=== PATIENT | female | born 1990 | race Caucasian/White ===

== ENCOUNTER 2022-08-15 02:42 | Emergency (ER) | payer OTHER, SELFPAY ==
[2022-08-15 03:02] VITALS: BP 127/75; PULSE 71; RESP 18; TEMP 37.1; O2SAT 98
--- NOTE | 2022-08-15 04:25 | PC.NURSE ---
called for room x 2 attempts. LWBS-Triaged @ [id number]
== END 2022-08-15 04:25 | disposition left against medical advice (07) ==
PROVIDERS: PCP Emergency Medicine
DX: R05.9 Cough, unspecified (principal)
CPT/HCPCS: 99199

== ENCOUNTER 2023-02-05 18:55 | Emergency (ER) | payer OTHER, SELFPAY ==
--- NOTE | 2023-02-05 18:57 | ED.DENTAL ---
HPI - Dental/Oral General Chief complaint: Dental/Oral Stated complaint: tooth pain Time Seen by Provider: 02/05/23 18:58 Source: patient and RN notes reviewed History of Present Illness HPI Narrative: Patient is a 32-year-old female who presents to urgent care with complaints of right upper facial swelling and dental pain. Patient states it started 2 nights ago. Patient states the tooth has been broke off for some time and she has not followed up with a dentist. Denies any fever, nausea or vomiting. States that she started to have vaginal discharge over the last few days and then a partner told her he was positive for an STD but did not develops which 1. Patient is also requesting to be tested for STDs and treated. Patient denies any urinary symptoms or pain with urination. No other acute complaints. No acute distress noted. Patient aware of the plan of care. Some parts of this dictation were generated by voice recognition software and may contain typographical and/or grammatical inaccuracies. Related Data Home Medications Medication Instructions Recorded Confirmed olanzapine 20 mg tablet 20 mg PO DAILY 02/05/23 02/05/23 trazodone 100 mg tablet 100 mg PO DAILY 02/05/23 02/05/23 venlafaxine 75 mg capsule,extended 75 mg PO DAILY 02/05/23 02/05/23 release 24 hr Allergies Allergy/AdvReac Type Severity Reaction Status Date / Time No Known Allergies Allergy Verified 02/05/23 19:01 Review of Systems Review of Systems: CONSTITUTIONAL: Denies fever, chills, or sweats. EYES: Denies visual changes, redness, or discharge. ENT: Denies rhinorrhea, congestion, sore throat, or otalgia. Reports of right upper facial swelling and dental pain CARDIOVASCULAR: Denies chest pain, palpitations, or edema. RESPIRATORY: Denies cough or dyspnea. GASTROINTESTINAL: Denies abdominal pain, nausea, vomiting, or diarrhea. GENITOURINARY: Reports of thick white vaginal discharge SKIN: Denies rash or itching. MUSCULOSKELETAL: Denies back pain, joint pain, or myalgia. NEUROLOGIC: Denies headache, numbness, or weakness. All other systems reviewed are negative, except as documented in HPI. PMFSH Comments At the time of my signature, I reviewed and agree with the nursing past medical, surgical, social, and family history. There is no relevant family history pertinent to the patient complaint. Exam Narrative: GENERAL: This is a well-nourished, well-developed patient, in no apparent distress. HEAD: normocephalic, atraumatic. EYES: PERRL. Sclera clear/white. Vision is grossly intact. EARS: External ears normal NOSE: External nose normal with no obvious nasal discharge, nares without redness, no rhinorrhea. THROAT: Mucous membranes moist, posterior pharynx clear. DENTAL: Avulsed right upper molar surrounding erythema and edema without drainage. Mild right upper facial swelling/tenderness NECK: Neck supple, non-tender without lymphadenopathy, masses or thyromegaly. SKIN: warm, intact with no suspicious lesions or rash, good texture and turgor. NEURO: awake, alert, and oriented to person, place and time. There were no obvious focal neurologic abnormalities. EXTREMITIES: No clubbing, cyanosis, or edema. Course Course Level of Care: Express Care Visit Vital Signs Vital signs: Vital Signs Temperature 97.8 F 02/05/23 19:00 Pulse Rate 95 02/05/23 19:00 Respiratory Rate 16 02/05/23 19:00 Blood Pressure 109/77 02/05/23 19:00 Pulse Oximetry 100 02/05/23 19:00 Oxygen Delivery Room Air 02/05/23 19:00 Temperature 97.8 F 02/05/23 19:00 Pulse Rate 95 02/05/23 19:00 Respiratory Rate 16 02/05/23 19:00 Blood Pressure 109/77 02/05/23 19:00 Pulse Oximetry 100 02/05/23 19:00 Oxygen Delivery Room Air 02/05/23 19:00 Reviewed MDM - Dental/Oral MDM Narrative Medical decision making narrative: Advised patient to complete the oral antibiotic regimen for dental infection as directed. You will be treated for gonorrhea
[2023-02-05 19:00] VITALS: BP 109/77; PULSE 95; RESP 16; TEMP 36.6; O2SAT 100
[2023-02-05] MEDS: cefTRIAXone 1 GM, LIDOCAINE HCL 1% LOCAL INJ 2.1 ML IM (19:10)
[2023-02-05 19:14] VITALS: BP 109/77; PULSE 95; RESP 16; TEMP 36.6; O2SAT 100
== END 2023-02-05 19:30 | disposition home or self-care (01) ==
PROVIDERS: Emergency Provider Nurse Practitioner Family
DX: K04.7 Periapical abscess without sinus (principal); Z11.3 Encounter for screening for infections with a predominantly sexual mode of transmission
CPT/HCPCS: 87491; 87591; 87661; 96372; 99214; G0463; J0696

== ENCOUNTER 2023-04-05 22:36 | Emergency (ER) | payer OTHER, SELFPAY ==
[2023-04-05 22:39] VITALS: BP 103/93; PULSE 76; RESP 18; TEMP 36.6; O2SAT 98
--- NOTE | 2023-04-05 23:15 | ED.FEMALEGU ---
HPI - Female Genitourinary General Chief complaint: Urogenital-Female Stated complaint: Urogenital Source: patient Mode of arrival: ambulatory Limitations: no limitations History of Present Illness HPI Narrative: this is a 32-year-old female with white vaginal discharge with some no flank pain abdominal pain and is worried about STD. Currently no fever chills no flank pain no shortness of breaths no chest pain. Related Data Home Medications Medication Instructions Recorded Confirmed trazodone 100 mg tablet 100 mg PO DAILY 02/05/23 04/05/23 venlafaxine 75 mg capsule,extended 75 mg PO DAILY 02/05/23 04/05/23 release 24 hr olanzapine 20 mg tablet 20 mg PO HS 04/05/23 04/05/23 Allergies Allergy/AdvReac Type Severity Reaction Status Date / Time No Known Allergies Allergy Verified 02/05/23 19:01 Review of Systems Review of Systems: All systems reviewed & are unremarkable except as noted in HPI and below PMFSH Past Medical History Medical History Patient denies medical problems Exam Const: General: healthy appearing Nutritional Appearance: well nourished Orientation/consciousness: patient oriented x3 Limitations: no limitations HENMT: Head: normal to inspection Eyes: Conjunctivae: conjunctivae normal Neck: Neck: normal visual inspection Chest: Chest palpation & inspection: normal inspection of the chest Resp: Effort & Inspection: normal respiratory effort Cardio: Rate: regular rate GI: GI Palp: Yes Soft to palpation Auscultation: normal bowel sounds : General: Yes bladder normal to palpation Other: speculum exam performed shows white vaginal discharge Urinary Catheter: Urinary Catheter: patent and draining Back/Spine/Pelvis: Back: no CVA tenderness Skin: General skin exam: normal color Rashes: no rashes Neuro: General: patient oriented x3 Extrem: General: normal to inspection Psych: Appearance: grossly normal Course Course Emergency Course: urine for [facility] collected, the patient concerned about STD and was given a dose of 1g ceftriaxone IM, 1g p.o. Zithromax and 150 of Diflucan p.o.. Urinalysis reviewed with patient. Vital Signs Vital signs: Vital Signs Temperature 36.6 C 04/05/23 22:39 Pulse Rate 76 04/05/23 22:39 Respiratory Rate 18 04/05/23 22:39 Blood Pressure 103/93 H 04/05/23 22:39 Pulse Oximetry 98 04/05/23 22:39 Oxygen Delivery Room Air 04/05/23 22:39 Temperature 36.6 C 04/05/23 22:39 Pulse Rate 76 04/05/23 22:39 Respiratory Rate 18 04/05/23 22:39 Blood Pressure 103/93 H 04/05/23 22:39 Pulse Oximetry 98 04/05/23 22:39 Oxygen Delivery Room Air 04/05/23 22:39 MDM - Female Genitourinary Lab Data Labs: Lab Results 04/05/23 Range/Units 22:45 Urine Color Pending Urine Appearance Pending Urine pH Pending Ur Specific [place] Pending Urine Protein Pending Urine Glucose (UA) Pending Urine Ketones Pending Ur Blood (Man) Pending Urine Nitrate Pending Urine Bilirubin Pending Urine Urobilinogen Pending Leukocyte Esterase Rfl Pending C.trachomatis RNA (TMA) Pending N.gonorrhoeae RNA (TMA) Pending Critical Care Time Critical Care Time Critical Care Time: No Discharge Plan Discharge Clinical Impression: Exposure to STD, Vaginal yeast infection Patient Disposition: Home, Self-Care Condition: Stable Instructions: Antibiotic Form, Sexually Transmitted Diseases (ED), Yeast Infection (ED) Additional Instructions: take medicine as prescribed and follow up with primary if symptoms persist or worsen. Prescriptions: New fluconazole [Diflucan] 150 mg tablet 150 mg PO ONCE Qty: 1 0RF Rx Instructions: as a single dose No Action olanzapine 20 mg tablet 20 mg PO HS venlafaxine 75 mg capsule,extended release 24hr 75 mg PO DAILY trazodone 100 mg tablet 100
[2023-04-05 23:28] LABS: Bilirubin Urine Negative (Negative); Blood Urine Negative (Negative); Color Urine Light Yellow (Yellow); Glucose Urine UA Negative (Negative); Ketones Urine Negative (Negative); Leukocyte Esterase Ur 1+ LEU/UL (Negative); Nitrate Urine Negative (Negative); Protein Urine Negative (Negative); Specific Grav Ur 1.015 (1.010-1.020); Urobilinogen Urine 0.2 mg/dL (0.2-1.0); pH Urine 7.5 (5.0-8.0)
[2023-04-05] MEDS: cefTRIAXone 1 GM, LIDOCAINE HCL 1% LOCAL INJ 2.1 ML IM (23:31)
[2023-04-05] MEDS: FLUCONAZOLE 150 MG TABLET PO (23:32)
[2023-04-05] MEDS: AZITHROMYCIN 250 MG TABLET 1000 MG PO (23:32)
[2023-04-05 23:35] LABS: Add Urine Microscopic? YES; Amorphous Sediment Urine Few; Appearance Urine Slightly Cloudy (Clear); Bacteria Urine 1+ /hpf; Squamous Epithelial Cell Urine Many /hpf (Few)
[2023-04-05 23:36] LABS: Mucus Urine Few /lpf
--- NOTE | 2023-04-05 23:46 | PC.NURSE ---
pt left AMA. pt signed AMA form. MD Duffy informed. Pt stated, I don't want to wait any more.
--- NOTE | 2023-04-05 23:53 | PC.NURSE ---
Md Duffy informed that pt left AMA prior to the final lab results. No new orders.
--- NOTE | 2023-04-08 14:46 | PC.NURSE ---
FINAL URINE CULTURE RESULTS: LESS THAN 10,000 CFU/ML OF SINGLE GRAM POSITIVE ORGANISM ISOLATED. NO FURTHER ACTION NEEDED PER DR LOCO.
--- NOTE | 2023-04-10 12:35 | PC.NURSE ---
Final Urine Test results: No C. Trachomatis, or N. Gonorrhoeae detected. no further treatment needed.
== END 2023-04-05 23:59 | disposition left against medical advice (07) ==
PROVIDERS: Emergency Provider Emergency Medicine
DX: N76.0 Acute vaginitis (principal); Z11.3 Encounter for screening for infections with a predominantly sexual mode of transmission
CPT/HCPCS: 81001; 87086; 87088; 87491; 87591; 96372; 99284; A9270; J0696

== ENCOUNTER 2023-10-17 08:06 | Outpatient (RCR) | payer OTHER, SELFPAY ==
[2023-10-17 09:06] LABS: Beta HCG Quantitative 14.72 mIU/ML
== END 2024-01-15 23:59 | disposition home or self-care (01) ==
LOC: ANHLAB 08:06
PROVIDERS: Visit Provider Obstetrics & Gynecology
DX: Z36.89 Encounter for other specified antenatal screening (principal); O36.0130 Maternal care for anti-D [Rh] antibodies, third trimester, not applicable or unspecified; Z3A.00 Weeks of gestation of pregnancy not specified
CPT/HCPCS: 36415; 84702; 85461; 86850; 86900; 86901

== ENCOUNTER 2023-12-20 11:56 | Emergency (ER) | payer OTHER, SELFPAY ==
[2023-12-20 12:14] VITALS: BP 117/74; PULSE 95; RESP 16; TEMP 36.8; O2SAT 99
--- NOTE | 2023-12-20 12:59 | ED.GENADULT ---
HPI - General Adult General Chief complaint: Upper Respiratory Infection Stated complaint: headache,bodyaches Time Seen by Provider: 12/20/23 12:59 Source: patient, RN notes reviewed and old records reviewed Mode of arrival: ambulatory Limitations: no limitations History of Present Illness HPI narrative: 33-year-old female presents to the [facility] with complaints headaches, body aches for 2 days. States that she has taken Sudafed. Denies fevers Treatments prior to arrival: other (Cold medication) Related Data Home Medications Medication Instructions Recorded Confirmed trazodone 100 mg tablet 100 mg PO DAILY 02/05/23 04/05/23 venlafaxine 75 mg capsule,extended 75 mg PO DAILY 02/05/23 04/05/23 release 24 hr olanzapine 20 mg tablet 20 mg PO HS 04/05/23 04/05/23 Allergies Allergy/AdvReac Type Severity Reaction Status Date / Time No Known Allergies Allergy Verified 02/05/23 19:01 Review of Systems Review of Systems: All systems reviewed & are unremarkable except as noted in HPI and below Constitutional: Constitutional: Reports as per HPI and Reports body ache(s) Eyes: Eyes: Reports no additional eye complaints ENT: Reports as per HPI, Reports nasal congestion and Denies sore throat Cardiovascular: Cardiovascular: Reports no additional cardiovascular complaints, Denies chest pain and Denies dyspnea Respiratory: Respiratory: Reports no additional respiratory complaints, Denies chest congestion, Denies cough and Denies dyspnea Gastrointestinal: Gastrointestinal: Reports no additional gastrointestinal complaints, Denies abdominal pain, Denies nausea and Denies vomiting Musculoskeletal: Musculoskeletal: Reports no additional musculoskeletal complaints Integumentary/Breasts: Skin/Breast: Reports system reviewed and no additional complaints, except as docu Neurologic: Reports system reviewed and no additional complaints, except as documented Psychiatric: Psychiatric: Reports no additional psychiatric complaints Allergic/Immunologic: Allergic/Immunologic: Reports no additional allergic/immunologic complaints PMFSH Past Medical History Medical History Patient denies medical problems Comments At the time of my signature, I reviewed and agree with the nursing past medical, surgical, social, and family history. There is no relevant family history pertinent to the patient complaint. Exam Const: General: cooperative, healthy appearing, comfortable, no acute distress, well developed, alert and well nourished Nutritional Appearance: well nourished Orientation/consciousness: patient oriented x3 Limitations: no limitations HENMT: Head: normal to inspection Ears: hearing grossly normal bilaterally, external ears normal, TM's normal bilaterally, EAC's normal, mastoids normal and no periauricular adenopathy Face/Nose/Sinus: Normal external nose present, Normal nares present, Normal nasal mucous membranes and turbinates present, No nasal discharge present, normal facial exam and face symmetric Face and sinus: normal facial exam and face symmetric Mouth: Yes Normal oral and palatal mucosa present, Yes lip normal, Yes tongue normal and Yes moist mucous membranes Throat: posterior oropharynx normal, tonsils normal and uvula midline Eyes: General: appearance normal, both eyes and all related structures Alignment and Position: alignment normal Periorbital: periorbital findings normal Pupils: Equal, round and reactive pupils present EOM: EOMs intact bilaterally Neck: Neck: normal visual inspection, full ROM, no lymphadenopathy and no meningeal signs Chest: Chest palpation & inspection: normal inspection of the chest Resp: Effort & Inspection: normal respiratory effort and able to speak in complete sentences Auscultation: clear to auscultation bilaterally, no crackles, no rales, no rhonchi and no wheezes Cardio: Rate: regular rate Rhythm: regular rhythm Back/Spine/P
== END 2023-12-20 13:10 | disposition home or self-care (01) ==
PROVIDERS: Emergency Provider Nurse Practitioner
DX: J06.9 Acute upper respiratory infection, unspecified (principal); Z20.822 Contact with and (suspected) exposure to COVID-19
CPT/HCPCS: 87426; 87804; 99213; G0463

== ENCOUNTER 2024-06-26 14:06 | Emergency (ER) | payer OTHER, SELFPAY ==
[2024-06-26 14:09] VITALS: BP 121/98; PULSE 104; RESP 18; TEMP 36.3; O2SAT 100
--- NOTE | 2024-06-26 15:20 | ED.GENADULT ---
HPI - General Adult General Chief complaint: Anxiety Stated complaint: anxiety Time Seen by Provider: 06/26/24 14:34 History of Present Illness HPI narrative: Fartun Martinez is a 33 y/o female who presents with reports having a hx of depression/anxiety and stopped using amphetamines about 6 days ago and she states she just has a really bad headache and feels dehydrated and feels a little nauseated. Denies fevers/chills/ vomiting Related Data Home Medications Medication Instructions Recorded Confirmed trazodone 100 mg tablet 100 mg PO DAILY 02/05/23 04/05/23 venlafaxine 75 mg capsule,extended 75 mg PO DAILY 02/05/23 04/05/23 release 24 hr olanzapine 20 mg tablet 20 mg PO HS 04/05/23 04/05/23 Allergies Allergy/AdvReac Type Severity Reaction Status Date / Time No Known Allergies Allergy Verified 02/05/23 19:01 Review of Systems Review of Systems: All systems reviewed & are unremarkable except as noted in HPI and below PMFSH Past Medical History Medical History Patient denies medical problems Social History Social History Substance use type: amphetamines Exam Narrative: GENERAL: Well-appearing, well-nourished, and in no acute distress. HEAD: Normocephalic, atraumatic. EYES: PERRLA and EOMI. ENT: Nares clear, no rhinorrhea or epistaxis. Mucous membranes moist. Oropharynx without tonsillar hypertrophy exudate or other lesions. NECK: Supple. No adenopathy or masses. No carotid bruits or JVD CHEST: Clear to auscultation. No respiratory distress. No wheezes rales or rhonchi HEART: Regular rate and rhythm. No murmur heard. Normal peripheral pulses. ABDOMEN: Soft, nontender, nondistended, normal active bowel sounds. EXTREMITIES: Normal range of motion. No edema. SKIN: Warm, dry, no rash. NEURO: No focal deficits. Alert and oriented x3. PSYCH: Normal mood and affect. Course Vital Signs Vital signs: Vital Signs Temperature 36.3 C L 06/26/24 14:09 Pulse Rate 104 H 06/26/24 14:09 Respiratory Rate 18 06/26/24 14:09 Blood Pressure 121/98 H 06/26/24 14:09 Pulse Oximetry 100 06/26/24 14:09 Temperature 36.3 C L 06/26/24 14:09 Pulse Rate 104 H 06/26/24 14:09 Respiratory Rate 18 06/26/24 14:09 Blood Pressure 121/98 H 06/26/24 14:09 Pulse Oximetry 100 06/26/24 14:09 Medical Decision Making MDM Narrative Medical decision making narrative: 33 y/o female presents with complaints of headache / nausea / not feeling well since she stopped using amphetamines 6 days ago. Denies any fever/chills / vomiting Plan to check labs and treat her with migraine cocktail CBC- rbc 4.10, hct 36.1, Plt 388 CMP- BUN 24, Crea 0.60, AST 55, ALT 111 Patient re-evaluated at 1710 - she is found sleeping comfortably, awakes to verbal stimuli she confirms she is feeling a lot better no longer having a VIDAL and no longer feeling nauseated she has tolerated PO here Updated pt on her lab results and plan to d/c home, encouraged her to follow up with PCP -she states she has one that she will follow up with Encouraged to continue to push oral hydration Strict return precautions provided. Medical Records Medical records reviewed: Yes I reviewed the external patient's medical records. Vital Signs Vital Signs: Vital Signs Temperature 36.3 C L 06/26/24 14:09 Pulse Rate 104 H 06/26/24 14:09 Respiratory Rate 18 06/26/24 14:09 Blood Pressure 121/98 H 06/26/24 14:09 Pulse Oximetry 100 06/26/24 14:09 Temperature 36.3 C L 06/26/24 14:09 Pulse Rate 104 H 06/26/24 14:09 Respiratory Rate 18 06/26/24 14:09 Blood Pressure 121/98 H 06/26/24 14:09 Pulse Oximetry 100 06/26/24 14:09 Vitals reviewed by me. Lab Data Lab results reviewed: Yes I reviewed the patient's lab results. 06/26/24 15:29 06/26/24 15:29 Labs: Lab Results
[2024-06-26 15:35] LABS: Basophils Absolute Auto 0.1 K/mm3 (0.0-0.1); Basophils Percent Auto 0.5 % (0.2-1.2); Eosinophils Absolute Auto 0.1 K/mm3 (0-0.3); Eosinophils Percent Auto 1.1 % (0-4.4); Hematocrit 36.1 % (37.0-47.0); Immature Granulocyte Absolute 0.04 K/mm3 (0.00-0.031); Immature Granulocyte Percent A 0.4 % (0-0.5); Lymphocytes Absolute Auto 1.95 K/mm3 (0.9-3.2); Lymphocytes Percent Auto 21.1 % (18.3-44.2); Mean Corpuscular HGB Conc 33.2 g/dl (32-36); Mean Corpuscular Hemoglobin 29.3 pg (26-34); Mean Platelet Volume 10.2 fl (7.4-10.4); Monocytes Absolute Auto 0.7 K/mm3 (0.1-0.6); Neutrophils Absolute Auto 6.4 K/mm3 (1.3-6.7); Neutrophils Percent Auto 69.9 % (45.5-73.1); Platelet Count Result 388 k/mm3 (150-375); Red Cell Distribution Width 13.2 % (11.5-14.5); White Blood Count 9.2 K/mm3 (4.5-10.0)
[2024-06-26 15:44] LABS: Alanine Aminotransferase 111 U/L (6-35); Albumin Level 4.6 g/dL (3.5-5.1); Alkaline Phosphatase 58 U/L (38-126); Anion Gap 7 mmol/L (4-12); Aspartate Amino Transferase 55 U/L (14-36); Bilirubin,Total 0.7 mg/dL (0.2-1.3); Blood Urea Nitrogen 24 mg/dL (7-17); Calcium 9.2 mg/dL (8.4-10.2); Carbon Dioxide 25 mmol/L (22-30); Chloride 106 mmol/L (98-107); Estimated CRCL calculation 91 ml/min; Estimated Glomerular Filt Rate > 60; Glucose 88 mg/dL (65-110); Potassium 4.2 mmol/L (3.4-5.0); Sodium 138 mmol/L (137-145)
[2024-06-26] MEDS: KETOROLAC 30 MG/ML VIAL (*BKC) IV PUSH (15:56)
[2024-06-26] MEDS: PROCHLORPERAZINE EDISYLATE 10 MG/2 ML VIAL IV PUSH (15:56)
[2024-06-26] MEDS: diphenhydrAMINE HCl INJ 50 MG/ML VIAL 25 MG IV PUSH (15:56)
[2024-06-26] MEDS: SODIUM CHLORIDE 0.9% IV 1,000 ML 999 ML IV CONT (15:57)
== END 2024-06-26 17:38 | disposition home or self-care (01) ==
PROVIDERS: Emergency Provider Nurse Practitioner Family
DX: R51.9 Headache, unspecified (principal); R11.0 Nausea; F41.9 Anxiety disorder, unspecified; F32.A Depression, unspecified; Z79.899 Other long term (current) drug therapy
CPT/HCPCS: 36415; 80053; 85025; 96361; 96374; 96375; 99284; J0780; J1200; J1885; J7030

== ENCOUNTER 2024-07-27 10:19 | Emergency (ER) | payer OTHER, SELFPAY ==
--- NOTE | 2024-07-27 10:22 | ED.FEMALEGU ---
HPI - Female Genitourinary General Chief complaint: Urogenital-Female Stated complaint: test Time Seen by Provider: 07/27/24 10:45 Source: patient and RN notes reviewed Mode of arrival: ambulatory Limitations: no limitations History of Present Illness HPI Narrative: 33-year-old female presents concern for suspected . Reports she is unsure of her last menstrual period, it was before May. She reports she has had several positive at-home tests, she has general malaise. Denies any vaginal bleeding, cramping, abdominal pain, nausea, vomiting. MD elicited complaint: suspected Related Data Home Medications Medication Instructions Recorded Confirmed venlafaxine 75 mg capsule,extended 75 mg PO DAILY 02/05/23 07/14/24 release 24 hr olanzapine 20 mg tablet 20 mg PO HS 04/05/23 07/14/24 doxepin 10 mg capsule mg PO ONCE 07/14/24 07/14/24 hydroxyzine HCl 25 mg tablet mg PO 07/14/24 07/14/24 mirtazapine 30 mg tablet (Remeron) 30 mg PO DAILY 07/14/24 07/14/24 Allergies Allergy/AdvReac Type Severity Reaction Status Date / Time No Known Allergies Allergy Verified 07/27/24 10:31 Review of Systems Review of Systems: CONSTITUTIONAL: Reports malaise. Denies chills, sweats, or fever. CARDIOVASCULAR: Denies chest pain, palpitations, or edema. RESPIRATORY: Denies cough or dyspnea. GASTROINTESTINAL: Denies abdominal pain, nausea, vomiting, diarrhea GENITOURINARY: Denies vaginal bleeding, spotting, dysuria, frequency, urgency, suprapubic pressure. SKIN: Denies rash or itching. MUSCULOSKELETAL: Denies back pain or myalgia. All systems reviewed & are unremarkable except as noted in HPI and below PMFSH Family History Family History Sibling Asthma Grandparent Alcohol abuse Cancer Social History Social History (Updated 07/14/24 @ 15:48 by Vero Johnson APRN) Smoking status: Current every day smoker Tobacco type: cigarettes Substance use: current Substance use type: amphetamines and IV drugs Last use: 07/07/24 Do You Feel Safe in your Home?: Yes Lack of Transportation: YES Lack of Food: Never True Current Housing: I Do Not Have Housing Concerned About Future Housing: YES Difficulty Paying Gas/Electric Bills: YES Difficulty Paying for Meds: No Currently Unemployed: No Education: High School Diploma/GED Difficulty w/ Childcare or Family Care: No Comments At time of signature, agree with nursing past medical, surgical, social and family history. There is no relevant family history pertinent to the presenting complaint Exam Narrative: GENERAL: Well-appearing, well-nourished, and in no acute distress. HEAD: Normocephalic. EYES: PERRLA, conjunctivae clear. NECK: Supple. No lymphadenopathy CHEST: Clear to auscultation. No respiratory distress. HEART: Regular rate and rhythm. ABDOMEN: Soft, nontender upon palpation, nondistended, normal active bowel sounds, no palpable or pulsatile masses, no guarding. No CVA tenderness SKIN: Warm, dry, no rash. NEURO: Alert and oriented x3. PSYCH: Normal mood and affect Course Course Emergency Course: Patient is aware of diagnosis, understands and agrees to treatment plan. Anticipatory guidance given. Patient agrees to follow-up as directed and is aware of reasons to seek care at the emergency department. Portions of this record may have been created with voice recognition software Level of Care: Express Care Visit Vital Signs Vital signs: Reviewed. MDM - Female Genitourinary MDM Narrative Medical decision making narrative: Exam findings and UA show no acute concerns or changes; patient is non-toxic appearing and is in no distress. Patient is appropriate for outpatient treatment and follow-up. Differential Diagnosis Differential diagnosis: Likely urinary tract infection and cystitis Critical Care Time Critical Care Time Critical Care Time: No
[2024-07-27 10:32] VITALS: BP 95/80; PULSE 80; RESP 16; TEMP 37; O2SAT 99
[2024-07-27 10:42] LABS: BEDSIDEPREGUCG Positive
[2024-07-27 10:58] VITALS: BP 95/80; PULSE 80; RESP 16; TEMP 37; O2SAT 99
== END 2024-07-27 11:00 | disposition home or self-care (01) ==
PROVIDERS: Emergency Provider Nurse Practitioner; PCP Nurse Practitioner Family
DX: Z32.01 Encounter for pregnancy test, result positive (principal); O99.330 Smoking (tobacco) complicating pregnancy, unspecified trimester; F17.210 Nicotine dependence, cigarettes, uncomplicated; Z3A.00 Weeks of gestation of pregnancy not specified
CPT/HCPCS: 81025; 99212; G0463

== ENCOUNTER 2024-12-28 17:02 | Emergency (ER) | payer OTHER, SELFPAY ==
[2024-12-28 17:12] VITALS: BP 108/62; PULSE 95; RESP 16; TEMP 37.8; O2SAT 100
--- NOTE | 2024-12-28 18:05 | ED.URI ---
HPI - URI/Sore Throat General Chief Complaint: Fever Stated Complaint: VIDAL,fever,acid reflux Time Seen by Provider: 12/28/24 18:00 Source: patient and RN notes reviewed Mode of arrival: ambulatory Limitations: no limitations History of Present Illness HPI Narrative: 34-year-old female who is 27 weeks presents with concern of for low-grade fever, body aches, headaches, nausea with 1 episode of vomiting. She reports she is currently taking penicillin after having a tooth pulled yesterday. She has been taking Zofran as needed at home. MD elicited complaint: fever Related Data Home Medications ?Medication ?Instructions ?Recorded ?Confirmed ?Last Taken ?Type venlafaxine 75 mg capsule,extended 75 mg PO DAILY 02/05/23 07/14/24 Unknown History release 24 hr olanzapine 20 mg tablet 20 mg PO HS 04/05/23 07/14/24 Unknown History mirtazapine 30 mg tablet (Remeron) 30 mg PO DAILY 07/14/24 07/14/24 Unknown History Allergies Allergy/AdvReac Type Severity Reaction Status Date / Time No Known Allergies Allergy Verified 12/28/24 17:30 Review of Systems Review of Systems: CONSTITUTIONAL: Reports malaise, fever. EYES: Denies visual changes, redness, or discharge. ENT: Denies rhinorrhea, congestion, sinus pain, otalgia and sore throat. CARDIOVASCULAR: Denies chest pain, palpitations, or edema. RESPIRATORY: Denies cough. Denies dyspnea. GASTROINTESTINAL: Denies abdominal pain, diarrhea. Reports nausea and vomiting SKIN: Denies rash or itching. MUSCULOSKELETAL: Reports myalgia. NEUROLOGIC: Reports headache. All systems reviewed & are unremarkable except as noted in HPI and below PMFSH Family History Family History Sibling Asthma Grandparent Alcohol abuse Cancer Social History Social History (Updated 07/14/24 @ 15:48 by Vero Johnson APRN) Smoking status: Current every day smoker Tobacco type: cigarettes Substance use: current Substance use type: amphetamines and IV drugs Last use: 07/07/24 Do You Feel Safe in your Home?: Yes Lack of Transportation: YES Lack of Food: Never True Current Housing: I Do Not Have Housing Concerned About Future Housing: YES Difficulty Paying Gas/Electric Bills: YES Difficulty Paying for Meds: No Currently Unemployed: No Education: High School Diploma/GED Difficulty w/ Childcare or Family Care: No Comments At time of signature, agree with nursing past medical, surgical, social and family history. There is no relevant family history pertinent to the presenting complaint Exam Narrative: GENERAL: Nontoxic-appearing, well-nourished, and in no acute distress. HEAD: Normocephalic EYES: PERRLA, conjunctivae clear ENT: Nares clear. Mucous membranes moist. TM pearly moore with sharp light reflex bilaterally; no tragal tenderness. Oropharynx not erythematous without lesions. Tonsils not enlarged and without exudate, no drooling, no hoarseness, no trismus, uvula midline. NECK: Supple. No lymphadenopathy CHEST: Clear to auscultation, breath sounds equal. No wheezing, rhonchi, rales, or stridor. No respiratory distress, speaks in full sentences. HEART: Regular rate and rhythm. No murmur heard. SKIN: Warm, dry, no rash. NEURO: Alert and oriented x3. PSYCH: Normal mood and affect Course Course Emergency Course: Patient is aware of diagnosis, understands and agrees to treatment plan. Anticipatory guidance given. Patient agrees to follow-up as directed and is aware of reasons to seek care at the emergency department. Portions of this record may have been created with voice recognition software Level of Care: Express Care Visit Vital Signs Vital signs: Vital Signs Temperature 100.0 F H 12/28/24 17:12 Pulse Rate 95 12/28/24 17:12 Respiratory Rate 16 12/28/24 17:12 Blood Pressure 108/62 12/28/24 17:12 Pulse Oximetry 100 12/28/24 17:12 Oxygen Delivery Room Air 12/28/24 17:12 Temperature 100.0 F H 12/28/24 17:12 Pulse Rate 95 12/28/24 17:12 Respiratory Rate 16 12/28/24 17:12 Blood Pressure 108/62 12/28/24 17:12 Pulse Oximetry 100 12/28/24 17:12 Oxygen Delivery Room Air 12/28/24 17:12 Reviewed. MDM - URI/Sore Throat MDM Narrative Medical decision making narrative: Differential diagnosis considered: Bedoya virus, strep pharyngitis, allergic rhinitis, upper respiratory tract infection, sinusitis, rhinosinusitis, nasopharyngitis. viral pharyngitis, otitis media, otitis externa, pneumonia, bronchitis, viral cough syndrome, viral syndrome, and influenza. Exam findings show no acute concerns or changes; patient is non-toxic appearing and is in no distress. Patient is appropriate for outpatient treatment and follow-up. Lab Data Attestation: I reviewed the patient's lab results. Critical Care Time Critical Care Time Critical Care Time: No Discharge Plan Discharge Clinical Impression: Influenza-like illness Patient Disposition: Home, Self-Care Condition: Stable Instructions: Viral Syndrome (ED) Additional Instructions: Your rapid COVID and flu tests are negative -Take strict precautions to prevent the spread of your virus. Be diligent about covering your cough (even when you are alone) and washing your hands frequently. -You may contagious until you have been symptom and/or fever free for 24 hours without fever reducing medicine -take Tylenol for pain and fever relief (per package directions) -Drink plenty of fluid - drink fluid with electrolytes such as Gatorade or other oral re-hydration solution. Avoid caffeine, which can make dehydration worse. -Get plenty of rest to help your body heal. -Use a cool mist humidifier for chest and nasal congestion. -Eat RAW honey or use cough drops to ease throat discomfort -Do not smoke or expose children to secondhand smoke -Wash your hands frequently. -Please follow-up with your primary care doctor in the next 1-2 days if your symptoms do not improve. -If you have any worsening of symptoms or any other concerns please go to the ED immediately. -Please take medications as prescribed and continue taking your home medications as usual. Patient Language: Wallisian Prescriptions: No Action olanzapine 20 mg tablet 20 mg PO HS venlafaxine 75 mg capsule,extended release 24hr 75 mg PO DAILY mirtazapine [Remeron] 30 mg tablet 30 mg PO DAILY Follow-up/Referrals: Vero Johnson APRN [Primary Care Provider] - Time of Disposition: 18:12
[2024-12-28 18:07] LABS: EDCOVIDSCREEN Negative (Negative); EDINFLUASCREEN Negative (Negative); EDINFLUBSCREEN Negative (Negative)
== END 2024-12-28 18:20 | disposition home or self-care (01) ==
PROVIDERS: Emergency Provider Nurse Practitioner; PCP Nurse Practitioner Family
DX: R50.9 Fever, unspecified (principal); R51.9 Headache, unspecified; R11.2 Nausea with vomiting, unspecified; F17.210 Nicotine dependence, cigarettes, uncomplicated; Z20.822 Contact with and (suspected) exposure to COVID-19
CPT/HCPCS: 87426; 87804; 99212; G0463

== ENCOUNTER → 2025-03-28 15:11 | Outpatient (CLI) | payer OTHER, SELFPAY ==
--- NOTE | ~2025-03-28 | XR_ITS ---
EXAMINATION: XR chest 2V 03/28/2025 16:03 INDICATION: Chronic cough PROCEDURE: 2 view chest COMPARISON: 02/17/2010 FINDINGS: The lungs are clear. The cardiomediastinal silhouette is within normal limits. There are no pleural effusions. There is no pneumothorax suspected. IMPRESSION: 1: NO ACUTE CARDIOPULMONARY DISEASE. Reviewed, dictated and finalized at location A.
== END ==
LOC: EXPCRAD 15:14
PROVIDERS: PCP Nurse Practitioner Family; Visit Provider Nurse Practitioner Family
DX: R05.3 Chronic cough (principal); D64.9 Anemia, unspecified
CPT/HCPCS: 71046

== ENCOUNTER 2025-06-16 10:43 | Emergency (ER) | payer OTHER, SELFPAY ==
--- NOTE | 2025-06-16 10:43 | ED.SKABFB ---
HPI - Skin/Abscess/Foreign Bdy General Chief complaint: Skin/Abscess/Foreign Body Stated complaint: Rash Time Seen by Provider: 06/16/25 10:43 Source: patient Mode of arrival: ambulatory Limitations: no limitations History of Present Illness HPI narrative: Patient is a 34-year-old female that presents with 2-3 days of poison bridget rash. Patient was pulling weeds days ago. Patient has rash all over body. Has been taking warm to hot showers which may have spread rash. Has use calamine lotion with no relief. Denies any facial swelling, difficulty breathing or swallowing. Related Data Home Medications ?Medication ?Instructions ?Recorded ?Confirmed ?Last Taken ?Type glecaprevir 100 mg-pibrentasvir 40 tablet PO 06/16/25 Unknown History mg tablet (Mavyret) norethindrone acetate 1 mg-ethinyl tablet 06/16/25 Unknown History estradiol 20 mcg tablet Allergies Allergy/AdvReac Type Severity Reaction Status Date / Time No Known Allergies Allergy Verified 06/16/25 10:44 Review of Systems Review of Systems: All systems reviewed & are unremarkable except as noted in HPI and below Constitutional: Constitutional: Denies body ache(s), Denies chills, Denies fatigue, Denies fever(s), Denies headache(s), Denies malaise and Denies weakness Eyes: Eyes: Denies blurry vision, Denies irritation and Denies loss of vision ENT: Denies otalgia, Denies headache(s), Denies nasal discharge, Denies sinus pain and Denies sore throat Cardiovascular: Cardiovascular: Denies chest pain, Denies irregular heart rhythm and Denies dyspnea Respiratory: Respiratory: Denies dyspnea Gastrointestinal: Gastrointestinal: Denies abdominal pain, Denies melena, Denies hematochezia, Denies diarrhea, Denies nausea and Denies vomiting Musculoskeletal: Musculoskeletal: Denies back pain, Denies myalgias and Denies arthralgias Integumentary/Breasts: Skin/Breast: Reports pruritus and Reports rash Neurologic: Denies headache(s), Denies loss of vision and Denies weakness Psychiatric: Psychiatric: Reports no additional psychiatric complaints Endocrine: Endocrine: Denies fatigue PMF Family History Family History Sibling Asthma Grandparent Alcohol abuse Cancer Social History Social History Smoking status: Current every day smoker Tobacco type: cigarettes Substance use: current Substance use type: amphetamines and IV drugs Last use: 07/07/24 Do You Feel Safe in your Home?: Yes Lack of Transportation: YES Lack of Food: Never True Current Housing: I Do Not Have Housing Concerned About Future Housing: YES Difficulty Paying Gas/Electric Bills: YES Difficulty Paying for Meds: No Currently Unemployed: No Education: High School Diploma/GED Difficulty w/ Childcare or Family Care: No Comments At time of signature, agree with nursing past medical, surgical, social and family history. There is no relevant family history pertinent to the presenting complaint. Exam Const: General: cooperative, healthy appearing, comfortable, no acute distress and well nourished Nutritional Appearance: well nourished Orientation/consciousness: patient oriented x3 Limitations: no limitations HENMT: Head: normal to inspection, normocephalic and atraumatic Ears: hearing grossly normal bilaterally and external ears normal Face/Nose/Sinus: Normal external nose present, normal facial exam and face symmetric Face and sinus: normal facial exam and face symmetric Mouth: Yes lip normal Eyes: General: appearance normal, both eyes and all related structures Alignment and Position: alignment normal and position normal Periorbital: periorbital findings normal Eyelids: eyelids normal Pupils: Equal, round and reactive pupils present EOM: EOMs intact bilaterally Neck: Neck: normal visual inspection, full ROM and supple Chest: Chest palpation & inspection: normal inspection of the chest Resp: Effort & Inspection: normal respiratory effort and able to speak in complete sentences Auscultation: clear to auscultation bilaterally Cardio: Rate: regular rate Rhythm: regular rhythm Heart sounds: S1 normal heart sound present and S2 normal heart sound present GI: Inspection: normal to inspection Skin: General skin exam: normal color and no rashes or lesions noted Rashes: rashes noted (bilateral arms, legs and left side of face) vesicles diffuse arrangement grouped, borders sharp and irregular, color with an erythematous base and surface erythematous, warm and waxy Neuro: General: patient oriented x3 and moves all extremities Cranial nerves: Yes Equal, round and reactive pupils present Speech: normal speech Gait exam (Neuro): Normal gait present Extrem: General: normal to inspection, full ROM and no edema Psych: Appearance: grossly normal and well kempt Mental Status: mental status grossly normal Speech and movement: Normal speech and movement present Affect: normal affect Attitude: cooperative Thought process: Normal thought process present Course Course Emergency Course: Patient is aware of diagnosis, understands and agrees to treatment plan. Anticipatory guidance given. Patient agrees to follow-up as directed and is aware of reasons to seek care at the emergency department. Portions of this record may have been created with voice recognition software Level of Care: Express Care Visit Vital Signs Vital signs: Reviewed MDM - Skin/Abscess/Foreign Bdy MDM Narrative Medical decision making narrative: Pt well hydrated appearing, in no respiratory distress, hemodynamically stable. Recommend supportive care. The patient is stable at time of discharge the clinical impression was discussed and the patient was given the opportunity to ask questions, which were addressed as completely as possible given the information available at present. Anticipatory guidance and return to care precautions were discussed and the importance of primary care follow-up was stressed and encouraged. The patient voiced understanding of the plan, indications to return, and the need for follow-up. Exam findings show no acute concerns or changes Patient is appropriate for outpatient treatment and follow-up. Differential Diagnosis Differential diagnosis: Likely abscess of skin or subcutaneous tissue, viral exanthem, urticaria, allergic reaction to drug, cellulitis, eczema, insect bites and contact dermatitis Medical Records Attestation: I reviewed the patient's medical records. Discharge Plan Discharge Clinical Impression: Poison bridget dermatitis Patient Disposition: Home Condition: Stable Instructions: Poison Bridget (ED) Additional Instructions: Take steroids in the morning with food Prevention is always better than treatment. Learn to identify poison bridget, oak, and sumac and avoid it. Wear long sleeves, long pants, shoes, and socks. If you touched the plant, try to keep your hands away from your eyes, mouth, and face. Wash the skin thoroughly with soap and cool water as soon as possible. Scrub under the fingernails with a brush to prevent spreading of the resin to other parts of the body by touching or scratching. Remember to wash any clothing with soap and hot water as the resin can persist for many months and cause further dermatitis. You should NOT use antihistamine creams or lotions, anesthetic creams containing benzocaine, or antibiotic creams containing neomycin or bacitracin to the skin. These creams or ointments could make the rash worse. For some people, adding oatmeal to a bath, applying cool wet compresses, and applying calamine lotion may help to relieve itching. Once the blisters begin weeping fluid, astringents containing aluminum acetate (Burow's solution) and Domeboro may help to relieve the rash. IF symptoms get worse to follow up with your primary care provider or seek ER visit if you developing difficulty breathing, weakness, dizziness. Patient Language: Guyanese Prescriptions: New prednisone 10 mg tablet See Rx Instructions .ROUTE .COMPLEX Qty: 35 0RF Rx Instructions: 40 mg daily for 5 days, 20 mg daily for 5 days, 10 mg daily for 5 days No Action norethindrone ac-eth estradiol 1-20 mg-mcg tablet Mavyret 100-40 mg tablet PO Follow-up/Referrals: Vero Johnson APRN [Primary Care Provider] - 3 Days Time of Disposition: 11:25
[2025-06-16 10:48] VITALS: BP 111/67; PULSE 107; RESP 18; TEMP 36.8; O2SAT 100
== END 2025-06-16 11:30 | disposition home or self-care (01) ==
PROVIDERS: Emergency Provider Nurse Practitioner Family; PCP Nurse Practitioner Family
DX: L23.7 Allergic contact dermatitis due to plants, except food (principal); F17.210 Nicotine dependence, cigarettes, uncomplicated
CPT/HCPCS: 99213; G0463